=== PATIENT | male | born 1970 | race Caucasian/White ===

== ENCOUNTER 2017-08-19 14:47 | Emergency (ER) | payer OTHER ==
[~2017-08-19] VITALS: Ht 170.2 cm; Wt 90.7 kg
[2017-08-19] MEDS ORDERED: SODIUM CHLORIDE 0.9% 1,000 ML IV ONE (15:14)
[2017-08-19] MEDS ORDERED: ceFAZolin 1GM/50ML 50 ML IV ONE (15:15)
[2017-08-19] MEDS ORDERED: HYDROmorphone HCL 2 MG/ML VL IV ONE ×3 (15:15→18:15)
[2017-08-19] MEDS ORDERED: ONDANSETRON HCL 4 MG/2 ML VIAL IV ONE ×2 (15:15→18:15)
[2017-08-19 15:39] LABS: Basophils # (auto) 0 uL; Basophils % (auto) 0.4 % (0.0-2.0); Eosinophils # (auto) 0.3 uL; Eosinophils % (auto) 2.8 % (0.0-7.0); Hematocrit 40.5 % (41.0-53.0); Hemoglobin 13.4 g/dL (13.5-17.5); Lymphocytes # (auto) 2.3 uL; Lymphocytes % (auto) 18.6 % (10.0-50.0); Mean Corpuscular Hemoglobin 28.9 pg (28.0-32.0); Mean Corpuscular Hgb Conc. 33.1 g/dL (32.0-36.0); Mean Corpuscular Volume 87.5 fL (80.0-100.0); Neutrophils # (auto) 8.5 uL; Neutrophils % (auto) 70.2 % (37.0-80.0); Nucleated Red Blood Cells % 0.1 %; Platelet Count (auto) 271 10^3/uL (140-450); Red Blood Cells 4.63 10^6/uL (4.5-5.90); Red Cell Distribution Width 14.3 % (11.8-14.3); White Blood Cell 12.1 10^3/uL (4.4-10.8)
[2017-08-19 15:48] LABS: INR 0.95 (0.9-1.15); Partial Thromboplastin Time 23.8 sec (22.64-33.71); Prothrombin Time 10.4 sec (9.37-12.3)
[2017-08-19 16:05] LABS: Albumin 3.9 g/dL (3.4-5.0); BUN/Creatinine Ratio 11.8; Bilirubin, Total 0.5 mg/dL (0.2-1.0); Calcium 8.4 mg/dL (8.5-10.1); Total Protein 7.8 g/dL (6.4-8.2)
[2017-08-19 16:15] LABS: Potassium 2.9 mmol/L (3.5-5.1)
[2017-08-19] MEDS ORDERED: POTASSIUM CHL 20MEQ/100ML 100 ML IV ONE (16:30)
[2017-08-19 17:50] VITALS: BP 156/60
== END 2017-08-19 18:36 | disposition short-term general hospital (02) ==
LOC: ER 14:47
DX: S92.321A Displaced fracture of second metatarsal bone, right foot, initial encounter for closed fracture (principal); S92.331A Displaced fracture of third metatarsal bone, right foot, initial encounter for closed fracture; W22.8XXA Striking against or struck by other objects, initial encounter; Y93.89 Activity, other specified; Y92.89 Other specified places as the place of occurrence of the external cause; Y99.8 Other external cause status
CPT/HCPCS: 29515; 36415; 73610; 73630; 80053; 85025; 85610; 85730; 86850; 86900; 86901; 94761; 96361; 96365; 96375; 96376; 99285; J0690; J1170; J2405; J3480; J7030; 96374